=== PATIENT | female | born 1950 | race Caucasian/White ===

== ENCOUNTER → 2023-08-29 12:34 | Outpatient (REF) | payer MEDICARE, OTHER, SELFPAY ==
[2023-08-29 13:18] LABS: % Basophils 0.5 % (0-2); % Eosinophils 0.8 % (0-6); % Immature Granulocytes 0.3 % (0-0.5); % Monocytes 7.2 % (1.7-9.3); % Neutrophils 55.2 % (42.2-75.2); Absolute Lymphocytes 1.4 10^3/uL (1.2-3.4); Absolute Monocytes 0.3 10^3/uL (0.1-0.6); Absolute Neutrophils 2.2 10^3/uL (1.4-6.5); Hematocrit 38.5 % (37.0-47.0); Mean Corp Hgb Conc. 33.8 g/dL (33.0-37.0); Mean Corpuscular Hgb 34.2 pg (27.0-31.0); Mean Corpuscular Volume 101.3 fL (81.0-99.0); Mean Platelet Volume 9.1 fL (7.4-10.4); Nucleated Red Blood Cells % 0 %; Platelet Count 170 10^3/uL (130-400); White Blood Cell Count 3.9 10^3/uL (4.8-10.8)
[2023-08-29 13:46] LABS: ALT (SGPT) < 10 U/L (0-35); AST (SGOT) 24 U/L (14-36); Alkaline Phosphatase 94 U/L (38-126); Blood Urea Nitrogen 12 mg/dl (7-17); Calcium 10.2 mg/dl (8.4-10.2); Carbon Dioxide 29 mmol/L (22-30); Chloride 100 mmol/L (98-107); Glucose 92 mg/dl (70-99); LDH 170 U/L (120-246); Magnesium 2.1 mg/dl (1.6-2.3); Phosphorus 4.4 mg/dl (2.5-4.5); Potassium 4.2 mmol/L (3.5-5.1); Sodium 139 mmol/L (135-145); Total Bilirubin 0.7 mg/dl (0.2-1.3); Uric Acid 1.9 mg/dl (2.5-6.2); eGFR > 60.00
== END ==
LOC: REG 12:34
DX: D75.839 Thrombocytosis, unspecified (principal); D45 Polycythemia vera
CPT/HCPCS: 36415; 80053; 83615; 83735; 84100; 84550; 85025

== ENCOUNTER → 2023-10-25 16:08 | Outpatient (REF) | payer MEDICARE, OTHER, SELFPAY | LOC: MRI 16:08 | PROVIDERS: ATTENDING PHYSICIAN Otolaryngology | DX: H91.92 Unspecified hearing loss, left ear (principal) | CPT/HCPCS: 70030; 70553; A9575 ==

== ENCOUNTER 2024-03-27 13:07 | Emergency (ER) | payer MEDICARE, OTHER, SELFPAY ==
[2024-03-27 13:18] VITALS: BP 126/69
[2024-03-27 13:50] LABS: % Eosinophils 0.1 % (0-6); % Immature Granulocytes 0.3 % (0-0.5); % Lymphocytes 18.2 % (20.5-51.1); % Monocytes 6.5 % (1.7-9.3); % Neutrophils 73.9 % (42.2-75.2); Absolute Basophils 0.1 10^3/uL (0-0.2); Absolute Lymphocytes 1.3 10^3/uL (1.2-3.4); Absolute Monocytes 0.5 10^3/uL (0.1-0.6); Absolute Neutrophils 5.2 10^3/uL (1.4-6.5); Hemoglobin 13.6 g/dL (12.0-16.0); Mean Corp Hgb Conc. 33.2 g/dL (33.0-37.0); Mean Corpuscular Hgb 36.3 pg (27.0-31.0); Mean Corpuscular Volume 109.3 fL (81.0-99.0); Mean Platelet Volume 10.1 fL (7.4-10.4); Nucleated Red Blood Cells % 0 %; Platelet Count 220 10^3/uL (130-400); Red Blood Cell Count 3.75 10^6/uL (4.20-5.40); Red Cell Dist. Width 12.1 % (11.5-14.5); White Blood Cell Count 7.1 10^3/uL (4.8-10.8)
[2024-03-27 14:05] LABS: ALT (SGPT) < 10 U/L (0-35); AST (SGOT) 20 U/L (14-36); Albumin 4.8 g/dl (3.5-5.0); Alkaline Phosphatase 90 U/L (38-126); Blood Urea Nitrogen 17 mg/dl (7-17); Calcium 9.6 mg/dl (8.4-10.2); Carbon Dioxide 27 mmol/L (22-30); Chloride 101 mmol/L (98-107); Glucose 128 mg/dl (70-99); Sodium 139 mmol/L (135-145); Total Bilirubin 0.5 mg/dl (0.2-1.3); Total Protein 7.7 g/dl (6.3-8.2); eGFR > 60.00
[2024-03-27 14:21] LABS: Lipase 89 U/L (23-300)
[2024-03-27 15:05] VITALS: BMI 22.6
[2024-03-27 15:17] VITALS: BP 128/75
[2024-03-27] MEDS: NSS 1000 IV (15:30)
--- NOTE | 2024-03-27 17:32 | ED.GENMED ---
History of Present Illness
General
Chief Complaint: Abdominal Symptoms
Source: patient
Exam Limitations: none
Time Seen by Provider: 03/27/24 15:01
History of Present Illness
History of Present Illness:
74-year-old female with history of Parkinson's presents with vomiting yesterday and into today associated with loose stools. She has ongoing diarrhea intermittently since being diagnosed with Parkinson's. She also feels that she might be
constipated. She currently denies any nausea. The vomiting is stopped. Dorsalis denies abdominal pain. She denies any blood in the vomit or the stool no fevers. No other
Past History
Past History
ED Past Medical History: Hypothyroidism and Other (Parkinson's elevated reticulocyte counts gets plasmapheresis)
ED Past Surgical History: None
Social History
Tobacco: Non-smoker
Alcohol: None
Drug: Marijuana
Personal:
Living: with family
Employment: Retired
Family History
Family History: CAD
Phy Exam
Physical Exam
Physical Exam:
General: Well-appearing female no acute respiratory distress
HEENT: Normocephalic atraumatic
Heart: Regular rate and rhythm
Lungs: Clear no wheeze
Abdomen is soft nontender nondistended no guarding or rebound normal bowel sounds
Extremities: No cyanosis or edema
Course
Orders/Labs/Results
Orders:
Orders
03/27/24 13:20
Electrocardiogram (*1) Urgent
Reason for Study: Abdominal Pain
EKG- Treatment ONCE
03/27/24 13:24
Comprehensive Metabolic Panel Urgent
Lipase Urgent
03/27/24 13:25
Complete Blood Count/With Diff Urgent
03/27/24 15:21
0.9% Sodium Chloride 1000 ml [Nss] 1,000 ml IV BOLUS
03/27/24 15:22
CR Abdomen - 2 Views Urgent
Reason For Exam: constipation
Abnormal Lab Results
03/27/24 03/27/24
13:24 13:25
RBC 3.75 L 10^6/uL
(4.20-5.40)
MCV 109.3 H fL
(81.0-99.0)
MCH 36.3 H pg
(27.0-31.0)
Lymphocytes % 18.2 L %
(20.5-51.1)
Glucose 128 H mg/dl
(70-99)
03/27/24 13:25
03/27/24 13:24
Vital Signs
Initial and Last Documented VS:
Initial Vital Signs
Temp Pulse Resp BP Pulse Ox
97.8 F 87 16 126/69 98
03/27/24 13:18 03/27/24 13:18 03/27/24 13:18 03/27/24 13:18 03/27/24 13:18
Last Documented Vital Signs
Temp Pulse Resp BP Pulse Ox
97.8 F 87 16 128/75 96
03/27/24 13:18 03/27/24 13:18 03/27/24 13:18 03/27/24 15:17 03/27/24 15:30
MDM/Problems Addressed
Differential Diagnosis Includes:
Patient overall nontoxic with benign abdominal exam presents with vomiting earlier today with ongoing loose stools. Diarrhea is a chronic issue for her. She does feel somewhat constipated at times. Consider viral illness versus constipation
versus ureteral bowel syndrome. No concerning signs on exam of bowel obstruction. Abdominal x-rays showed no obstructive pattern do demonstrate a mild amount of stool throughout the colon to suggest constipation. Recommended continue dorsalis and
MiraLAX. She is tolerating oral fluids has no further nausea vomiting no stool sample provided here. Labs reviewed without significant finding. No indication for admission. Stable for discharge
*Critical Care Note
Total Time (30-74mins, 75-104mins- exclusive of procedures): Not Applicable
ED Attending Note
-
Portions of this chart may have been created with voice recognition software.� Occasional wrong word or��sound alike� substitutions may have occurred due to the inherent limitations of voice recognition software.
Discharge Plan
Departure
Patient Disposition: Home (Routine Discharge)
Date of Disposition: 03/27/24
Time of Disposition: 17:40
Patient with high blood pressure during this ER visit?: No
Discharge Problem:
Constipation
Instructions: Constipation, Adult (DC)
Prescriptions:
No Action
aspirin 81 MG tablet,delayed release (DR/EC)
81 mg PO HS
carbidopa-levodopa 1 EACH tablet
1.5 tab PO TID@0800,1300,1830
atorvastatin 40 MG tablet
40 mg PO DAILY
levothyroxine 75 MCG tablet
75 mcg PO DAILY
cannabidiol [Epidiolex] 1 UNIT solution
1 - 2 puff PO HSPRN PRN (Reason: sleep/anxiety)
Patient Comments:
patient picks up at [facility] ([phone]) has vaper pen
Referrals:
UNKNOWN - PT DOES,NOT KNOW [Family Provider] -
Activity Restrictions/Additional Instructions:
Continue with MiraLAX. Please follow-up with your GI doctor for further evaluation as planned. Return if worse otherwise
Interventions
Interventions:
*Risk Screen - Suicide Last Done: 03/27/24 13:18
*General Assessment Last Done: 03/27/24 15:05
*Neglect/Abuse Screening Last Done: 03/27/24 13:18
ED- Fall Risk Assessment Last Done: 03/27/24 15:05
*ED COVID-19 Vaccine History Last Done: 03/27/24 15:05
DN-Mdeepc-Xybfbgadcp Assessment Last Done: 03/27/24 15:05
Discharge Date and Time
Print Language: TANZANIAN
== END 2024-03-27 17:56 | disposition home or self-care (01) ==
LOC: EMR 13:07
PROVIDERS: Emergency Medicine; EMERGENCY PHYSICIAN Student in an Organized Health Care Education/Training Program
DX: K59.00 Constipation, unspecified (principal); G20.A1 Parkinson's disease without dyskinesia, without mention of fluctuations; E03.9 Hypothyroidism, unspecified; Z82.49 Family history of ischemic heart disease and other diseases of the circulatory system
CPT/HCPCS: 99283; 96360; 74019; 80053; 83690; 85025; 93005

== ENCOUNTER → 2024-04-05 11:03 | Outpatient (REF) | payer MEDICARE, OTHER, SELFPAY ==
[2024-04-05 12:10] LABS: Blood Urea Nitrogen 11 mg/dl (7-17); Calcium 9.3 mg/dl (8.4-10.2); Carbon Dioxide 31 mmol/L (22-30); Chloride 98 mmol/L (98-107); Glucose 102 mg/dl (70-99); Sodium 139 mmol/L (135-145); eGFR > 60.00
[2024-04-05 12:40] LABS: TSH Reflex To Free T4 0.24 uIU/ml (0.47-4.68)
[2024-04-05 13:11] LABS: Free T4 1.75 ng/dl (0.78-2.19)
== END ==
LOC: REG 11:03
DX: K59.00 Constipation, unspecified (principal)
CPT/HCPCS: 36415; 80048; 84439; 84443

== ENCOUNTER → 2024-04-08 06:33 | Outpatient (REF) | payer MEDICARE, OTHER, SELFPAY | LOC: REG 06:33 | DX: R19.7 Diarrhea, unspecified (principal) | CPT/HCPCS: 83993; 87045; 87046; 87324; 87427; 87449 ==

== ENCOUNTER → 2024-04-20 07:59 | Emergency (ER) | payer MEDICARE, OTHER, SELFPAY ==
[2024-04-20 08:01] VITALS: BP 144/72
[2024-04-20 08:27] LABS: % Basophils 0.3 % (0-2); % Eosinophils 0.3 % (0-6); % Immature Granulocytes 0.3 % (0-0.5); % Lymphocytes 21.3 % (20.5-51.1); % Monocytes 9.7 % (1.7-9.3); % Neutrophils 68.1 % (42.2-75.2); Absolute Lymphocytes 0.6 10^3/uL (1.2-3.4); Absolute Monocytes 0.3 10^3/uL (0.1-0.6); Hematocrit 40.1 % (37.0-47.0); Hemoglobin 13.6 g/dL (12.0-16.0); Mean Corp Hgb Conc. 33.9 g/dL (33.0-37.0); Mean Corpuscular Hgb 36.1 pg (27.0-31.0); Mean Corpuscular Volume 106.4 fL (81.0-99.0); Nucleated Red Blood Cells % 0 %; Platelet Count 160 10^3/uL (130-400); Red Blood Cell Count 3.77 10^6/uL (4.20-5.40); Red Cell Dist. Width 12.2 % (11.5-14.5)
[2024-04-20 08:34] LABS: COVID-19 Antigen Negative (Negative)
[2024-04-20 08:37] LABS: ALT (SGPT) 23 U/L (0-35); AST (SGOT) 25 U/L (14-36); Albumin 4.5 g/dl (3.5-5.0); Alkaline Phosphatase 80 U/L (38-126); Blood Urea Nitrogen 16 mg/dl (7-17); Calcium 9.3 mg/dl (8.4-10.2); Carbon Dioxide 28 mmol/L (22-30); Chloride 100 mmol/L (98-107); Glucose 132 mg/dl (70-99); Lipase 76 U/L (23-300); Potassium 4.1 mmol/L (3.5-5.1); Sodium 138 mmol/L (135-145); Total Bilirubin 0.6 mg/dl (0.2-1.3); Total Protein 7.4 g/dl (6.3-8.2); eGFR > 60.00
[2024-04-20 08:49] VITALS: BMI 21.7
[2024-04-20 08:55] VITALS: BP 120/70
[2024-04-20 09:00] VITALS: BP 119/70
--- NOTE | 2024-04-20 10:13 | ED.GENMED ---
History of Present Illness
General
Chief Complaint: Abdominal Symptoms
Time Seen by Provider: 04/20/24 09:11
History of Present Illness
History of Present Illness:
74-year-old female presents the emergency department for evaluation of nausea vomiting diarrhea and mild cough for the past 5 days as well as fever. Was encouraged to come to the emergency department by her primary care physician for a chest x-ray
although at this time she denies any dyspnea. Feels improved and has been able to eat and drink as of last night.
Past History
Past History
ED Past Medical History: Hypothyroidism and Other (Parkinson's elevated reticulocyte counts gets plasmapheresis)
ED Past Surgical History: None
Social History
Tobacco: Non-smoker
Alcohol: None
Drug: Marijuana
Personal:
Living: with family
Employment: Retired
Family History
Family History: CAD
Review of Systems
Review of Systems
Allergies reviewed?: Yes
All Other Systems: ROS reviewed and negative except as documented in HPI and ROS
Phy Exam
Physical Exam
Physical Exam:
GEN: Well appearing, NAD, WDWN
HEENT: Oral mucosa moist, no scleral icterus
Cardiac: Regular rate and rhythm, no murmur
Lung: No respiratory distress, no tachypnea, lungs clear to auscultation bilaterally
MSK: No gross deformity or injuries
Skin: Good color, no pallor or jaundice, no rashes
Neuro: AO x3, moves all extremities freely
Psych: Calm, cooperative
Course
Orders/Labs/Results
Orders:
Orders
04/20/24 08:16
COVID-19 Antigen Urgent
Source: Nasal Swab
Complete Blood Count/With Diff Urgent
Comprehensive Metabolic Panel Urgent
Lipase Urgent
Influenza A+B Rapid Molecular Urgent
BRENNA Source: Nasal Swab
Specimen Description:
04/20/24 09:36
CR Chest - 2 Views Urgent
Comment: +FLU
Reason For Exam: cough, congestion
Abnormal Lab Results
04/20/24
08:16
WBC 3.0 L 10^3/uL
(4.8-10.8)
RBC 3.77 L 10^6/uL
(4.20-5.40)
MCV 106.4 H fL
(81.0-99.0)
MCH 36.1 H pg
(27.0-31.0)
Absolute Lymphs (auto) 0.6 L 10^3/uL
(1.2-3.4)
Monocytes % 9.7 H %
(1.7-9.3)
Glucose 132 H mg/dl
(70-99)
04/20/24 08:16
04/20/24 08:16
Vital Signs
Initial and Last Documented VS:
Initial Vital Signs
Temp Pulse Resp BP Pulse Ox
98.0 F 87 18 144/72 98
04/20/24 08:01 04/20/24 08:01 04/20/24 08:01 04/20/24 08:01 04/20/24 08:01
Last Documented Vital Signs
Temp Pulse Resp BP Pulse Ox
98 F 69 16 119/70 95
04/20/24 08:55 04/20/24 09:00 04/20/24 09:00 04/20/24 09:00 04/20/24 09:00
MDM/Problems Addressed
MDM/Problems Addressed:
Labs reassuring, mild leukopenia secondary to viral syndrome. Positive for influenza. She reports subjective improvement over the past 24 hours which is reassuring. No indication for antivirals
*Critical Care Note
Total Time (30-74mins, 75-104mins- exclusive of procedures): Not Applicable
ED Attending Note
-
Portions of this chart may have been created with voice recognition software.� Occasional wrong word or��sound alike� substitutions may have occurred due to the inherent limitations of voice recognition software.
Discharge Plan
Departure
Patient Disposition: Home (Routine Discharge)
Date of Disposition: 04/20/24
Time of Disposition: 10:14
Patient with high blood pressure during this ER visit?: No
Discharge Problem:
Influenza
Instructions: Flu in adults - Discharge instructions
Prescriptions:
No Action
aspirin 81 MG tablet,delayed release (DR/EC)
81 mg PO HS
carbidopa-levodopa 1 EACH tablet
1.5 tab PO TID@0800,1300,1830
atorvastatin 40 MG tablet
40 mg PO DAILY
levothyroxine 75 MCG tablet
75 mcg PO DAILY
cannabidiol [Epidiolex] 1 UNIT solution
1 - 2 puff PO HSPRN PRN (Reason: sleep/anxiety)
Patient Comments:
patient picks up at [facility] ([phone]) has vaper pen
Referrals:
UNKNOWN - PT DOES,NOT KNOW [Family Provider] -
Interventions
Interventions:
*Risk Screen - Suicide Last Done: 04/20/24 08:01
*General Assessment Last Done: 04/20/24 08:01
*Neglect/Abuse Screening Last Done: 04/20/24 08:01
ED- Fall Risk Assessment Last Done: 04/20/24 08:50
*ED COVID-19 Vaccine History Last Done: 04/20/24 08:01
BH-Vtjkkq-Vrdbghjlrd Assessment Last Done: 04/20/24 08:50
Discharge Date and Time
Print Language: MEXICAN
== END | disposition home or self-care (01) ==
LOC: EMR 07:59
PROVIDERS: Emergency Medicine; EMERGENCY PHYSICIAN Student in an Organized Health Care Education/Training Program
DX: J11.1 Influenza due to unidentified influenza virus with other respiratory manifestations (principal); R11.2 Nausea with vomiting, unspecified; R19.7 Diarrhea, unspecified; Z11.52 Encounter for screening for COVID-19; E03.9 Hypothyroidism, unspecified; G20.A1 Parkinson's disease without dyskinesia, without mention of fluctuations; Z88.0 Allergy status to penicillin
CPT/HCPCS: 99283; 71046; 80053; 83690; 85025; 87502; 87811

== ENCOUNTER → 2024-05-08 11:20 | Outpatient (REF) | payer MEDICARE, OTHER, SELFPAY ==
[2024-05-08 14:11] LABS: Blood Urea Nitrogen 17 mg/dl (7-17); Calcium 9.7 mg/dl (8.4-10.2); Carbon Dioxide 30 mmol/L (22-30); Chloride 99 mmol/L (98-107); Glucose 170 mg/dl (70-99); Potassium 4.2 mmol/L (3.5-5.1); Sodium 138 mmol/L (135-145); eGFR > 60.00
== END ==
LOC: REG 11:20
PROVIDERS: ATTENDING PHYSICIAN Internal Medicine
DX: R19.5 Other fecal abnormalities (principal)
CPT/HCPCS: 36415; 80048

== ENCOUNTER → 2024-05-31 13:00 | Outpatient (REF) | payer MEDICARE, OTHER, SELFPAY ==
[2024-05-31 13:29] LABS: % Basophils 0.4 % (0-2); % Eosinophils 0.2 % (0-6); % Immature Granulocytes 0.2 % (0-0.5); % Lymphocytes 13.8 % (20.5-51.1); % Monocytes 5.8 % (1.7-9.3); % Neutrophils 79.6 % (42.2-75.2); Absolute Lymphocytes 1.2 10^3/uL (1.2-3.4); Absolute Monocytes 0.5 10^3/uL (0.1-0.6); Absolute Neutrophils 7.1 10^3/uL (1.4-6.5); Hematocrit 40.3 % (37.0-47.0); Hemoglobin 13.7 g/dL (12.0-16.0); Mean Corpuscular Hgb 36.1 pg (27.0-31.0); Mean Corpuscular Volume 106.3 fL (81.0-99.0); Mean Platelet Volume 9.5 fL (7.4-10.4); Nucleated Red Blood Cells % 0 %; Platelet Count 222 10^3/uL (130-400); Red Blood Cell Count 3.79 10^6/uL (4.20-5.40); Red Cell Dist. Width 13.3 % (11.5-14.5); White Blood Cell Count 8.9 10^3/uL (4.8-10.8)
[2024-05-31 14:55] LABS: TSH 0.19 uIU/ml (0.47-4.68)
== END ==
LOC: REG 13:00
DX: D45 Polycythemia vera (principal); E03.9 Hypothyroidism, unspecified; K52.9 Noninfective gastroenteritis and colitis, unspecified
CPT/HCPCS: 36415; 84443; 85025

== ENCOUNTER → 2024-06-26 08:04 | Outpatient (REF) | payer MEDICARE, OTHER, SELFPAY | LOC: RAD 08:04 | PROVIDERS: ATTENDING PHYSICIAN Internal Medicine | DX: Z13.820 Encounter for screening for osteoporosis (principal); N95.1 Menopausal and female climacteric states; Z78.0 Asymptomatic menopausal state | CPT/HCPCS: 77080 ==

== ENCOUNTER → 2024-07-25 11:23 | Outpatient (REF) | payer MEDICARE, OTHER, SELFPAY ==
[2024-07-25 12:25] LABS: % Eosinophils 0.5 % (0-6); % Immature Granulocytes 0.2 % (0-0.5); % Lymphocytes 19.6 % (20.5-51.1); % Monocytes 7.9 % (1.7-9.3); % Neutrophils 70.8 % (42.2-75.2); Absolute Basophils 0.1 10^3/uL (0-0.2); Absolute Lymphocytes 1.2 10^3/uL (1.2-3.4); Absolute Monocytes 0.5 10^3/uL (0.1-0.6); Absolute Neutrophils 4.3 10^3/uL (1.4-6.5); Hematocrit 43.1 % (37.0-47.0); Hemoglobin 14.3 g/dL (12.0-16.0); Mean Corp Hgb Conc. 33.2 g/dL (33.0-37.0); Mean Corpuscular Hgb 35.8 pg (27.0-31.0); Mean Corpuscular Volume 107.8 fL (81.0-99.0); Mean Platelet Volume 10.2 fL (7.4-10.4); Nucleated Red Blood Cells % 0 %; Platelet Count 247 10^3/uL (130-400); Red Cell Dist. Width 12.9 % (11.5-14.5); White Blood Cell Count 6.1 10^3/uL (4.8-10.8)
[2024-07-25 12:49] LABS: Blood Urea Nitrogen 18 mg/dl (7-17); Calcium 10.2 mg/dl (8.4-10.2); Carbon Dioxide 28 mmol/L (22-30); Chloride 104 mmol/L (98-107); Glucose 95 mg/dl (70-99); Potassium 4.4 mmol/L (3.5-5.1); Sodium 142 mmol/L (135-145); eGFR > 60.00
[2024-07-25 13:19] LABS: TSH Reflex To Free T4 1.27 uIU/ml (0.47-4.68)
== END ==
LOC: REG 11:23
PROVIDERS: ATTENDING PHYSICIAN Internal Medicine; FAMILY PHYSICIAN Internal Medicine
DX: E03.9 Hypothyroidism, unspecified (principal); D45 Polycythemia vera; R19.5 Other fecal abnormalities
CPT/HCPCS: 36415; 80048; 84443; 85025

== ENCOUNTER 2024-12-14 10:53 | Emergency (ER) | payer MEDICARE, OTHER, SELFPAY ==
[2024-12-14] VITALS (8 sets, daily range): BP systolic 116–150; BP diastolic 59–80; BMI 23.0
[2024-12-14 12:44] LABS: ALT (SGPT) < 10 U/L (0-35); AST (SGOT) 23 U/L (14-36); Albumin 4.7 g/dl (3.5-5.0); Alkaline Phosphatase 82 U/L (38-126); Blood Urea Nitrogen 22 mg/dl (7-17); Calcium 9.5 mg/dl (8.4-10.2); Carbon Dioxide 29 mmol/L (22-30); Chloride 105 mmol/L (98-107); Estimated Creatinine Clearance 50 ml/min; Glucose 122 mg/dl (70-99); Potassium 4.6 mmol/L (3.5-5.1); Sodium 140 mmol/L (135-145); Total Protein 7.5 g/dl (6.3-8.2); eGFR > 60.00
[2024-12-14 12:50] LABS: Hematocrit 40.7 % (37.0-47.0); Hemoglobin 13.5 g/dL (12.0-16.0); Mean Corp Hgb Conc. 33.2 g/dL (33.0-37.0); Mean Corpuscular Volume 104.1 fL (81.0-99.0); Nucleated Red Blood Cells % 0 %; Platelet Count 229 10^3/uL (130-400); Red Cell Dist. Width 13.1 % (11.5-14.5)
[2024-12-14] MEDS: ZOFRAN 4 MG IV ×2 (13:01→17:11)
[2024-12-14] MEDS: PROTONIX IV 40 MG IV (13:01)
[2024-12-14] MEDS: NSS 1000 IV (13:03)
[2024-12-14 13:22] LABS: Lipase 95 U/L (23-300)
--- NOTE | 2024-12-14 14:01 | ED.GENMED ---
History of Present Illness
General
Chief Complaint: Abdominal Symptoms
Source: patient
Exam Limitations: none
Time Seen by Provider: 12/14/24 12:09
Nursing documentation reviewed up to this point in time: agreed with
History of Present Illness
History of Present Illness:
see MDM
Past History
Past History
ED Past Medical History: Hypothyroidism and Other (Parkinson's elevated reticulocyte counts gets plasmapheresis)
ED Past Surgical History: None
Social History
Tobacco: Non-smoker
Alcohol: None
Drug: Marijuana
Personal:
Living: with family
Employment: Retired
Family History
Family History: CAD
Review of Systems
Review of Systems
Allergies reviewed?: Yes
All Other Systems: Not applicable
Phy Exam
Physical Exam
Physical Exam:
GENERAL: Alert , in no apparent distress
EYE: pupils equal and reactive
NECK: Supple
ENT: o/p clr, mildly dry
CARDIAC: Regular rate and rhythm .
LUNGS: Clear breath sounds bilaterally, no acute respiratory distress, no wheezes/rales/rhonchi
ABDOMEN: Soft, without focal tenderness, no r/g, no cvat, normal bowel sounds
NEUROLOGICAL: Alert and oriented, no focal neuro deficits
SKIN: Warm and dry, skin intact.
MUSCULOSKELETAL: No edema, well perfused. neg tori's sign
PSYCH: Normal and appropriate interaction.
Course
Orders/Labs/Results
Orders:
Orders
12/14/24 12:11
Complete Blood Count/With Diff Urgent
Comprehensive Metabolic Panel Urgent
Lipase Urgent
12/14/24 12:50
0.9% Sodium Chloride 1000 ml [Nss] 1,000 ml IV BOLUS
Ondansetron Injectable [Zofran] 4 mg IV NOW STA
Pantoprazole [Protonix IV] 40 mg IV NOW STA
12/14/24 13:24
CT Abd/Pel (IV only)-DH only Urgent
Comment:
Reason For Exam: vomiting and diarrhea
12/14/24 16:52
Ondansetron Injectable [Zofran] 4 mg IV NOW STA
Abnormal Lab Results
12/14/24
12:11
RBC 3.91 L 10^6/uL
(4.20-5.40)
MCV 104.1 H fL
(81.0-99.0)
MCH 34.5 H pg
(27.0-31.0)
Abs Immat Gran (auto) 0.1 H 10^3/uL
(0-0.05)
Absolute Neuts (auto) 9.6 H 10^3/uL
(1.4-6.5)
Absolute Lymphs (auto) 0.6 L 10^3/uL
(1.2-3.4)
Neutrophils % 89.8 H %
(42.2-75.2)
Lymphocytes % 5.4 L %
(20.5-51.1)
BUN 22 H mg/dl
(7-17)
Glucose 122 H mg/dl
(70-99)
12/14/24 12:11
12/14/24 12:11
Vital Signs
Initial and Last Documented VS:
Initial Vital Signs
Temp Pulse Resp BP Pulse Ox
36.4 C 64 16 150/80 99
12/14/24 10:55 12/14/24 10:55 12/14/24 10:55 12/14/24 10:55 12/14/24 10:55
Last Documented Vital Signs
Temp Pulse Resp BP Pulse Ox
37.2 C 63 23 120/63 96
12/14/24 12:00 12/14/24 17:45 12/14/24 17:45 12/14/24 16:00 12/14/24 17:45
MDM/Problems Addressed
Differential Diagnosis Includes:
see MDM
MDM/Problems Addressed:
Note:
CHIEF COMPLAINT(S)
- Diarrhea and vomiting.
HISTORY OF PRESENT ILLNESS
The patient is a 74-year-old female with h/o parkinsons presenting with symptoms of diarrhea and vomiting that began this morning at approximately 8:30 AM. The patient describes experiencing severe episodes of diarrhea followed by vomiting, and
reports frequent bathroom visits. The patient indicates that she did not feel well two days prior but did not exhibit gastrointestinal symptoms until today. Before today, her bowel movements were described as normal and formed. She notes a history
of alternating constipation and diarrhea, which she associates with her Parkinsons disease. She reports no blood in the stool, but did notice a red streak in her vomit, which she attributes to repetitive vomiting. The patient denies any recent
antibiotic use and is currently taking medication for hypertension.
PAST MEDICAL AND SURIGICAL HISTORY
- Parkinsons disease.
- Gastrointestinal issues managed by a pediatric cns with a recent requirement to follow up in two weeks.
- Hypertension.
CHRONIC MEDICAL CONDITIONS SIGNIFICANTLY AFFECTING CARE
- Parkinsons disease.
- Hypertension.
PHYSICAL EXAM
- Nursing notes reviewed and vital signs reviewed.
PLAN
- Initiate intravenous fluids to address potential dehydration.
- Administer anti-nausea medication.
- Consideration for computed tomography scan based on laboratory results.
- Potential dose of stomach-protective medication (e.g., pantoprazole) to prevent further gastrointestinal lining irritation.
DIFFERENTIAL DIAGNOSIS
The Differential Diagnosis includes, in no particular order and is not limited to:
1. Viral gastroenteritis.
2. Bacterial gastroenteritis.
3. Dehydration secondary to vomiting and diarrhea.
4. Parkinsons disease-related gastrointestinal dysmotility.
5. Medication-induced gastrointestinal disturbance.
6. Cydney-White tear due to repetitive vomiting.
7. Inflammatory bowel disease.
8. Peptic ulcer disease.
9. Small bowel obstruction.
10. Clostridioides difficile infection (less likely in absence of recent antibiotic use).
74 y/o F
does have chornic constipation/diarrhea probably secondary to parkinsons
but had nausea/vomiting x 5 since last night a few 3 episodes of diarrhea
feels nauesated but no focal pain
no h/o SBO
no bloody stool but did have small streak in vomit x 1
hasn't vomited in a few hours
no fever
on exam pt is well appearing
mildly dry mouth
abdomen nontender
checked labs, gvave zofran/fluids
labs reassuring, mild dehydration but given her age, CT her abdomen to r/o obstruction/colitis
her ct was unremarkable
she was given po challenge, she tolerated with mild nausea
repetaed the dose of zofran
given the option to be obs for gastroenteritis but she did feel better and would like to go home.
*Pulse Oximetry
SaO2: 95
Oxygen Mode of Delivery: Room air
Patient hypoxic: no (99)
*Critical Care Note
Total Time (30-74mins, 75-104mins- exclusive of procedures): Not Applicable
ED Attending Note
-
Portions of this chart may have been created with voice recognition software.� Occasional wrong word or��sound alike� substitutions may have occurred due to the inherent limitations of voice recognition software.
Discharge Plan
Departure
Patient Disposition: Home (Routine Discharge)
Date of Disposition: 12/14/24
Time of Disposition: 17:40
Patient with high blood pressure during this ER visit?: Yes
Covid-19: Not Applicable
Discharge Problem:
Gastroenteritis
Instructions: Viral gastroenteritis in adults
Prescriptions:
New
ondansetron 4 mg tablet,disintegrating
4 mg PO Q8H PRN (Reason: nausea and vomiting) 2 Days Qty: 5 0RF
No Action
aspirin 81 MG tablet,delayed release (DR/EC)
81 mg PO HS
carbidopa-levodopa 1 EACH tablet
1.5 tab PO TID@0800,1300,1830
atorvastatin 40 MG tablet
40 mg PO DAILY
levothyroxine 75 MCG tablet
75 mcg PO DAILY
cannabidiol [Epidiolex] 1 UNIT solution
1 - 2 puff PO HSPRN PRN (Reason: sleep/anxiety)
Patient Comments:
patient picks up at [facility] ([phone]) has vaper pen
Referrals:
Jake Sol DO [Family Provider, Internal Medicine]
Activity Restrictions/Additional Instructions:
You probably have a viral infection causing the vomiting or diarrhea. You certainly did not have any significant lab abnormalities or CAT scan findings. Try Zofran every 8 hours under your tongue as needed for the nausea and vomiting. [place] diet
today, liquids as tolerated, advance to broths and crackers etc. Return for any concerns
Interventions
Interventions:
*Risk Screen - Suicide Last Done: 12/14/24 10:55
*General Assessment Last Done: 12/14/24 12:04
*Neglect/Abuse Screening Last Done: 12/14/24 10:55
*ED- Fall Risk Assessment Last Done: 12/14/24 12:04
*ED COVID-19 Vaccine History Last Done: 12/14/24 12:04
*ED Influenza Vaccine History Last Done: 12/14/24 12:04
*Nursing Disposition Last Done: 12/14/24 18:04
GC-Hreeky-Cailmlcrrw Assessment Last Done: 12/14/24 12:04
Discharge Date and Time
Discharge Date/Time: 12/14/24 18:05
Print Language: POLISH
== END 2024-12-14 18:05 | disposition home or self-care (01) ==
LOC: EMR 10:53
PROVIDERS: EMERGENCY PHYSICIAN Emergency Medicine; FAMILY PHYSICIAN Internal Medicine
DX: K52.9 Noninfective gastroenteritis and colitis, unspecified (principal); E86.0 Dehydration; I10 Essential (primary) hypertension; G20.A1 Parkinson's disease without dyskinesia, without mention of fluctuations; E03.9 Hypothyroidism, unspecified; K59.09 Other constipation; Z79.82 Long term (current) use of aspirin; Z82.49 Family history of ischemic heart disease and other diseases of the circulatory system
CPT/HCPCS: 99284; 96374; 96375; 96376; 96361; 74177; 80053; 83690; 85025; Q9967

== ENCOUNTER 2025-02-18 10:09 | Emergency (ER) | payer MEDICARE, OTHER, SELFPAY ==
[2025-02-18 10:15] VITALS: BP 138/91
--- NOTE | 2025-02-18 12:58 | ED.GENMED ---
History of Present Illness
General
Chief Complaint: Back Pain
Source: patient and family
Exam Limitations: none
Time Seen by Provider: 02/18/25 12:43
Nursing documentation reviewed up to this point in time: agreed with
History of Present Illness
History of Present Illness:
75-year-old female presents to the emergency department due to low back pain rating to right foot. Symptoms began on Monday and worsened. She has trouble walking daily due to her Parkinson's. She took Advil, but it helped only briefly.
Past History
Past History
ED Past Medical History: Hypothyroidism and Other (Parkinson's elevated reticulocyte counts gets plasmapheresis)
ED Past Surgical History: None
Social History
Tobacco: Non-smoker
Alcohol: None
Drug: Marijuana
Personal:
Living: with family
Employment: Retired
Family History
Family History: CAD
Review of Systems
Review of Systems
Allergies reviewed?: Yes
All Other Systems: Not applicable
Constitutional: Reports no symptoms
EENT: Reports no symptoms
Respiratory: Reports no symptoms
Cardiac: Reports no symptoms
ABD/GI: Reports no symptoms
: Reports no symptoms
Musculoskeletal: Reports back pain
Skin: Reports no symptoms
Neurological: Reports numbness
Endocrine: Reports no symptoms
Hematologic/Lymphatic: Reports no symptoms
Psychiatric: Reports no symptoms
Phy Exam
Physical Exam
Physical Exam:
Physical Exam
General: no apparent distress, not acutely ill
Neck: supple. no meningeal signs. normal posterior pharynx
Heart: s1/s2 regular rate and rhythm, no murmur. equal radial
pulses.
HEENT: Pupils equal round reactive to light, EOMI
Lungs: no acute respiratory distress. clear bilaterally
Abdomen: normal bowel sounds. not tender. no CVAT
Neuro: alert and oriented. no focal neurological deficits cranial nerves II through XII intact
Skin: no rash
Psychiatric: well kept. interactive and cooperative
Extremities: no edema. no calf tenderness. negative homans. good distal pulses
Course
Orders/Labs/Results
Orders:
Orders
02/18/25 12:56
Gabapentin [Neurontin] 200 mg PO NOW STA
Gabapentin [Neurontin] 300 mg .ROUTE .STK-MED ONE
02/18/25 12:58
Lumbar Spine Complete, 4 View [CR Lumbar Spine Comp Min 4 Vw*] Urgent
Comment:
Reason For Exam: low back pain radiating to right foot
Vital Signs
Initial and Last Documented VS:
Initial Vital Signs
Temp Pulse Resp BP Pulse Ox
97.5 F 79 20 138/91 97
02/18/25 10:15 02/18/25 10:15 02/18/25 10:15 02/18/25 10:15 02/18/25 10:15
Last Documented Vital Signs
Temp Pulse Resp BP Pulse Ox
97.5 F 72 18 128/72 99
02/18/25 10:15 02/18/25 15:13 02/18/25 15:13 02/18/25 15:13 02/18/25 15:13
MDM/Problems Addressed
Differential Diagnosis Includes:
Sciatica, lumbar radiculopathy, cauda equina
MDM/Problems Addressed:
75-year-old female with right sided sciatica no signs of cauda equina, also constipation. Stable for discharge treat with gabapentin follow-up with pain management.
Chronic conditions affecting care: CAD and Cardiomyopathy
*Radiology
Radiology exam reviewed: radiology read reviewed (Multilevel degenerative changes lumbar x-ray)
*Pulse Oximetry
SaO2: 97
Oxygen Mode of Delivery: Room air
Patient hypoxic: no
*Critical Care Note
Total Time (30-74mins, 75-104mins- exclusive of procedures): Not Applicable
ED Attending Note
-
Portions of this chart may have been created with voice recognition software.� Occasional wrong word or��sound alike� substitutions may have occurred due to the inherent limitations of voice recognition software.
Discharge Plan
Departure
Patient Disposition: Home (Routine Discharge)
Date of Disposition: 02/18/25
Time of Disposition: 14:56
Patient with high blood pressure during this ER visit?: Yes
Condition: Good
Discharge Problem:
Sciatica of right side
Instructions: Sciatica (DC), BLOOD PRESSURE
Prescriptions:
New
gabapentin [Neurontin] 100 mg capsule
200 mg PO DAILY Qty: 60 0RF
No Action
aspirin 81 MG tablet,delayed release (DR/EC)
81 mg PO HS
carbidopa-levodopa 1 EACH tablet
1.5 tab PO TID@0800,1300,1830
atorvastatin 40 MG tablet
40 mg PO DAILY
levothyroxine 75 MCG tablet
75 mcg PO DAILY
cannabidiol [Epidiolex] 1 UNIT solution
1 - 2 puff PO HSPRN PRN (Reason: sleep/anxiety)
Patient Comments:
patient picks up at [facility] ([phone]) has vaper pen
ondansetron 4 mg tablet,disintegrating
4 mg PO Q8H PRN (Reason: nausea and vomiting) 2 Days Qty: 5 0RF
Referrals:
Jake Sol DO [Family Provider, Internal Medicine]
Louis Samuel MD [Active, Anesthesiology] - Call in 1-3 days for appt
Interventions
Interventions:
*General Assessment Last Done: 02/18/25 13:14
*Nursing Disposition Last Done: 02/18/25 15:14
ED-Musculoskeletal Assessment Last Done: 02/18/25 12:53
Discharge Date and Time
Discharge Date/Time: 02/18/25 15:16
Print Language: FAROESE
[2025-02-18] MEDS: NEURONTIN 200 MG PO (13:03)
[2025-02-18 15:13] VITALS: BP 128/72
== END 2025-02-18 15:16 | disposition home or self-care (01) ==
LOC: EMR 10:09
PROVIDERS: EMERGENCY PHYSICIAN Emergency Medicine; FAMILY PHYSICIAN Internal Medicine
DX: M54.41 Lumbago with sciatica, right side (principal); R03.0 Elevated blood-pressure reading, without diagnosis of hypertension; I25.10 Atherosclerotic heart disease of native coronary artery without angina pectoris; I42.9 Cardiomyopathy, unspecified; G20.A1 Parkinson's disease without dyskinesia, without mention of fluctuations; E03.9 Hypothyroidism, unspecified; Z79.82 Long term (current) use of aspirin; Z82.49 Family history of ischemic heart disease and other diseases of the circulatory system
CPT/HCPCS: 99283; 72110